=== PATIENT | male | born 1975 | race American Indian/Alaskan Native ===

== ENCOUNTER 2021-03-27 11:00 | Emergency (ER) | payer SELFPAY ==
[2021-03-27 11:27] VITALS: BP 144/75
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
--- NOTE | 2021-03-27 13:53 | XRay Report ---
. LEFT KNEE 3 VIEWS INDICATION: Pain. COMPARISON: None. IMPRESSION: No acute osseous or soft tissue abnormality. No significant DJD. LEFT ANKLE 3 VIEWS INDICATION: jumped 6 feet; landed on left foot/ PAIN. COMPARISON: None. IMPRESSION: No acute osseous or soft tissue abnormality. No significant DJD. LEFT FOOT 3 VIEWS INDICATION: jumped 6 feet; landed on left foot/ PAIN. COMPARISON: None. IMPRESSION: No acute osseous or soft tissue abnormality. No significant DJD. Signer Name: Luis Hanna Jr, MD Signed: 03/27/2021 1:48 PM Workstation Name: [id number]
== END 2021-03-27 15:12 | disposition home or self-care (01) ==
LOC: ED 11:00
DX: S93.402A Sprain of unspecified ligament of left ankle, initial encounter (principal); Z79.899 Other long term (current) drug therapy; X50.9XXA Other and unspecified overexertion or strenuous movements or postures, initial encounter; Y93.89 Activity, other specified; Y92.89 Other specified places as the place of occurrence of the external cause; Y99.8 Other external cause status
CPT/HCPCS: 99283